=== PATIENT | female | born 1955 | race African-American/Black ===

== ENCOUNTER 2019-08-31 20:24 | Inpatient (IN) | payer MEDICARE, MEDICAID ==
[2019-08-31] MEDS ORDERED: Piperacillin/Tazobactam 3.375 GM VIAL ONE ×2 (21:39→21:44)
[2019-08-31] MEDS ORDERED: Heparin 10,000 UNITS/ 10 ML VIAL SLOW IVP SCH (21:45)
[2019-08-31 22:16] LABS: INR-International Normal Ratio 1.3; Prothrombin Time 16.4 SEC (12.0-14.7)
[2019-08-31 22:29] LABS: #Lymphocytes 1.1 thou/uL (1.20-3.40); #Monocytes 0.5 thou/uL (0.11-0.59); #Neutrophils 3.3 thou/uL (1.40-6.50); %Basophils 0.4 % (0.0-1.0); %Eosinophils 0.8 % (0.0-10.0); %Lymphocytes 22.7 % (21.0-51.0); %Monocytes 9.3 % (0.0-10.0); %Neutrophils 66.8 % (42.0-75.0); ALT (SGPT) 10 U/L (8-55); AST (SGOT) 19 U/L (5-34); Albumin 3.4 g/dL (3.4-4.8); Alkaline Phosphatase 83 U/L (40-110); Anion Gap 14 mmol/L (10-20); BUN (Urea Nitrogen) 30 mg/dL (9.8-20.1); Bilirubin, Total 0.3 mg/dL (0.2-1.2); Calc. Creatinine Clearance 0 mL/min (70-130); Carbon Dioxide 24 mmol/L (23-31); Chloride 97 mmol/L (98-107); Estimated GFR-MDRD 14; Globulin 3.5 g/dL (2.4-3.5); Glucose 101 mg/dL (80-115); Hemoglobin 10.7 g/dL (12.0-16.0); Mean Corpuscular HGB CONC 32.3 g/dL (32.0-36.0); Mean Corpuscular Hemoglobin 28.7 pg (27.0-31.0); Mean Corpuscular Volume 88.9 fL (78.0-98.0); Mean Platelet Volume 10.2 fL (7.4-10.4); Platelet Count 195 thou/uL (130-400); Potassium 4.3 mmol/L (3.5-5.1); Protein, Total 6.9 g/dL (6.0-8.3); RBC Distribution Width 14.6 % (11.5-14.5); Red Blood Cell (RBC) Count 3.74 mill/uL (4.20-5.40); Sodium 131 mmol/L (136-145); White Blood Cell (WBC) Count 4.9 thou/uL (4.8-10.8)
[2019-08-31 22:44] LABS: Thyroid Stimulating Hormone 2.5507 uIU/mL (0.35-4.94)
[2019-08-31 22:51] LABS: CKMB 1.9 ng/mL (0-6.6)
[2019-08-31] MEDS ORDERED: Acetaminophen 325 MG TAB PO PRN (23:56)
[2019-08-31] MEDS ORDERED: Lorazepam 2 MG/ML VIAL SLOW IVP PRN (23:59)
[2019-09-01] MEDS ORDERED: PHENobarbital 32.4 MG TAB PO SCH (00:15)
[2019-09-01] MEDS ORDERED: levETIRAcetam 500 MG TAB PO SCH (00:15)
[2019-09-01 01:52] LABS: Bacteria/HPF None Seen HPF (None Seen); Bilirubin Negative (Negative); Blood, Urine Trace (Negative); Clarity Clear (Clear); Glucose, Urine (Dipstick) Normal (Negative); Leukocyte Negative Leu/uL (Negative); Nitrite Negative (Negative); Protein, Urine (Dipstick) Negative (Neg-Trace); RBC/HPF None Seen HPF (0-3); Squamous Epithelial 0-3 HPF (0-3); Urobilinogen Normal mg/dL (Less than 2); WBC/HPF 0-3 HPF (0-3)
[2019-09-01 02:04] LABS: Troponin I 0.204 ng/mL (< 0.028)
[2019-09-01] MEDS: Sodium Chloride 0.9% 1,000 ML IV SCH ×2 (03:19→14:16)
[2019-09-01 05:58] LABS: #Eosinphils 0.1 thou/uL (0.0-0.7); #Lymphocytes 1.1 thou/uL (1.20-3.40); #Monocytes 0.3 thou/uL (0.11-0.59); %Basophils 0.2 % (0.0-1.0); %Eosinophils 2.9 % (0.0-10.0); %Lymphocytes 23.8 % (21.0-51.0); %Neutrophils 66.2 % (42.0-75.0); Hemoglobin 11.4 g/dL (12.0-16.0); Mean Corpuscular HGB CONC 32.7 g/dL (32.0-36.0); Mean Corpuscular Hemoglobin 29.1 pg (27.0-31.0); Mean Corpuscular Volume 88.9 fL (78.0-98.0); Mean Platelet Volume 10.3 fL (7.4-10.4); Platelet Count 188 thou/uL (130-400); RBC Distribution Width 14.7 % (11.5-14.5); White Blood Cell (WBC) Count 4.5 thou/uL (4.8-10.8)
[2019-09-01 06:12] LABS: Troponin I 0.148 ng/mL (< 0.028)
[2019-09-01 06:13] LABS: ALT (SGPT) 11 U/L (8-55); AST (SGOT) 21 U/L (5-34); Alkaline Phosphatase 69 U/L (40-110); Anion Gap 18 mmol/L (10-20); BUN (Urea Nitrogen) 30 mg/dL (9.8-20.1); Bilirubin, Total 0.4 mg/dL (0.2-1.2); Calc. Creatinine Clearance 14 mL/min (70-130); Calcium 7.8 mg/dL (7.8-10.44); Carbon Dioxide 19 mmol/L (23-31); Chloride 101 mmol/L (98-107); Estimated GFR-MDRD 14; Globulin 3.4 g/dL (2.4-3.5); Glucose 91 mg/dL (80-115); Potassium 4.3 mmol/L (3.5-5.1); Protein, Total 6.4 g/dL (6.0-8.3); Sodium 134 mmol/L (136-145)
[2019-09-01 06:17] LABS: PTT Greater than 250.0 SEC (22.9-36.1)
--- NOTE | 2019-09-01 07:19 | HP ---
CHIEF COMPLAINT: Shortness of breath. HISTORY OF PRESENT ILLNESS: The patient is a 63-year-old female, who came from [facility] with complaints of shortness of breath and was found to have a PE. The patient stated that she was recently in the hospital at [facility], was intubated and had a seizure. I am not sure if this is a new seizure or old seizure. However, the patient then was transferred to [facility] or [facility] for rehabilitation. The patient states that she has been feeling well however, today, she was just unable to do any kind of therapy, got very short of breath. At this time, she was seen by the physician at [facility]. D-dimer was done, which was significantly elevated and the patient at that time underwent a CTA, which indicated extensive pulmonary artery embolism, so she was transferred here for further evaluation. The patient also was noted to be significantly hypoxic in the 80s. PAST MEDICAL HISTORY: She has a history of seizure disorder. 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 She also has a history of chronic kidney disease stage 3. She has osteoarthritis. PAST SURGICAL HISTORY: She has had cataract surgery. She has a pacemaker in her left chest wall area. She has had a uterine prolapse repair, bladder suspension, and hysterectomy. MEDICATIONS: She is on; 1. Dilantin 400 mg daily. 2. Keppra 1000 mg b.i.d.. 3. Phenobarbital, per the MAR, 32.4 mg twice a day. 4. Magnesium 400 mg twice a day. 5. Tylenol p.r.n. ALLERGIES: THE PATIENT IS ALLERGIC TO PENICILLIN. SOCIAL HISTORY: She denies any smoking history. She lives alone. She does not drink and she is a full code and no other recreational drug use. FAMILY HISTORY: Father in his 60s, had diabetes and CAD, hypertension, Alzheimer's. Mother still alive at age of 88 and she has had a history of seizures. REVIEW OF SYSTEMS: All negative except for the ones mentioned above in the HPI. PHYSICAL EXAMINATION: VITAL SIGNS: Her temperature is 98.8, oxygen saturations 94% on 4 L, respirations 22, blood pressure 134/84, 97 pulse. GENERAL: She is awake, alert, and oriented x3. Does not appear in any much distress. HEENT: Normocephalic, atraumatic. No lymphadenopathy noted. Pupils equal and reactive to light. CV: S1 and S2 present. No murmurs, rubs, or gallops. LUNGS: Clear to auscultation. No rhonchi or wheezes noted. ABDOMEN: Soft and nontender. Bowel sounds are present x2. EXTREMITIES: She does have lower extremity 1+ pitting edema. No significant swelling noted from one greater than the other. NEUROLOGIC: Neurovascular dailey, no focal deficits noted. SKIN: No cuts, lesions, or bruises noted. LABORATORY RESULTS: WBCs of 4.9, hemoglobin of 10.7, hematocrit of 33.2, her platelets were 195. Chemistries; sodium of 131, potassium of 4.3, BUN of 30, creatinine of 3.91. Her troponin x1 was 0.416. TSH was 2.5. She did have a CTA, which indicated extensive pulmonary artery embolism, predominantly in the right upper pulmonary artery system, possible right-sided hydronephrosis. Nonemergent ultrasound indicated. In further evaluation of the pulmonary artery, there is a filling defect involving the distal main pulmonary artery with extension of filling defect into the proximal left main pulmonary artery and the right main pulmonary artery. Filling defect extends into the right upper lobe artery, middle lobe artery, and right lower lobe pulmonary artery. There is filling defect involving the segmental branches of the left upper lobe. ASSESSMENT AND PLAN: The patient is a very pleasant 63-year-old female, who presents to the hospital with shortness of breath and was found to have a pulmonary embolism. 1. Acute pulmonary embolism. The patient initially in the ER was started on heparin per pulmonary embolism protocol. We did call Pulmonology for possible tPA candidate given her extensive pulmonary embolism finding and her elevation of troponin. However, at this time, she was unable to receive any sort of tPA given the fact that she received Eliquis, which we were notified by the news broadcaster who was called by this [facility] seismograph helper. I did call the swing bed for further investigation about this and I was told by the nursing staff that the patient had received 10 mg of Eliquis at about 4:33 p.m. However, at this time, I will still continue the heparin and just continue to monitor. I will also order an echocardiogram and I will get lower extremity Dopplers. 2. Acute kidney injury and chronic kidney disease. Her creatinine now is 3.9, it was 1.52. I will get renal ultrasounds on this patient. Nephrology has been consulted. I will also start her on some gentle hydration given her recent contrast. 3. Seizure. I will continue her home dose seizure medication based on her medication reconciliation on her JAN. 4. Deep venous thrombosis prophylaxis. The patient is already on Lovenox. 5. The patient had significant T-wave inversions in the lateral leads. I do not have a previous EKG for comparison. I have asked for records from [facility] to compare them. The patient currently denies any chest pain. She denies any history of any stents. I will continue to monitor her. Job ID: [id number]
--- NOTE | 2019-09-01 07:54 | ULT ---
Renal ultrasound: 09/01/2019 COMPARISON: None HISTORY: Evaluate for hydronephrosis TECHNIQUE: Multiplanar grayscale sonographic imaging of the kidneys and urinary bladder obtained. FINDINGS: Prominent right-sided hydronephrosis is noted. The right kidney measures 11.8 cm in cranioc audal dimension. The urinary bladder is distended, with a prevoid volume of approximately 834 cc. Left kidney measures 10.2 cm in craniocaudal dimension and demonstrates minimal hydronephrosis. IMPRESSION: Bilateral hydronephrosis, right greater than left. Distended urinary bladder. The sonogra pher was unable to visualize ureteral jets. Recommend repeat renal ultrasound following voiding or placement of a Graham catheter. If hydronephrosis persists at that time, then a CT examination of the abdomen/pelvis would be recommended.
--- NOTE | 2019-09-01 08:41 | ULT ---
BILATERAL LOWER EXTREMITY VENOUS ULTRASOUND WITH DOPPLER: Date: 09/01/19 HISTORY: Newly diagnosed pulmonary artery emboli. COMPARISON: None. TECHNIQUE: Cortez scale, color flow, Doppler imaging, and spectral waveform analysis performed of the left and rig ht lower extremity deep venous system. FINDINGS: Right lower extremity: There is a partial thrombus involving the femoral vein and popliteal vein. Left lower extremity: There is a partial thrombus involving the common femoral vein and femoral vein. IMPRESSION: Partial deep vein thrombus involving the left and right lower extremity venous system. Results of study conveyed to the patient's nurse by the mult au matic operator upon performing exam, 09/01/19 at 0655 hours. CODE CR. POS: [facility]
[2019-09-01] MEDS: levETIRAcetam 500 MG TAB PO SCH ×2 (09:23→20:29)
[2019-09-01] MEDS: PHENobarbital 32.4 MG TAB PO SCH ×2 (09:23→20:29)
[2019-09-01] MEDS: Piperacillin/Tazobactam 3.375 GM in Sodium Chloride 0.9% 100 ML IVPB SCH ×3 (09:24→20:28)
--- NOTE | 2019-09-01 11:41 | CON ---
DATE OF CONSULTATION: REASON FOR CONSULTATION: Elevated creatinine. HISTORY OF PRESENT ILLNESS: This is a very pleasant 63-year-old female, who presented to the hospital with dyspnea. The patient's creatinine was 1.5 on August 29, which peaked to 3.9 yesterday and is 3.8 today, prior baseline has been 0.8. The patient had elevated troponin. The patient was treated for pulmonary embolism with tPA and had received IV contrast. PAST MEDICAL HISTORY: Significant for seizure disorder, bradycardia, pacemaker, cataract surgery, uterine prolapse, bladder suspension, and hysterectomy. MEDICATIONS: Home medications list reviewed. Hospital medications list reviewed. ALLERGIES: REVIEWED. REVIEW OF SYSTEMS: Fifteen-point review of system was performed and negative, except for positives noted above. GENERAL: HEAD: NECK: No swelling or lumps. NOSE: No epistaxis or discharge. EYES: No diplopia or pain. RESPIRATORY: CARDIOVASCULAR: GASTROINTESTINAL: /FIELD RECORDER: MUSCULOSKELETAL: No joint pain. NEUROPSYCHIATRIC SYSTEMS: No suicidal ideation. No ideation. SKIN: Denies any rash or ulcer. CONSTITUTIONAL: No fever or chills. PHYSICAL EXAMINATION: CONSTITUTIONAL: The patient is awake and alert. VITAL SIGNS: Afebrile, pulse 75, breathing 16, and blood pressure 127/70. GENERAL APPEARANCE AND MENTAL STATUS: Fair. HEAD/NECK: Normocephalic. Atraumatic. EYES: EOMI. No deformity. EARS: Clear. No ulcers. NOSE: Intact. No lesions. MOUTH: Clear. No discharge. THROAT: Clear. No exudate. LUNGS: Clear. No crackles. CARDIAC: S1, S2. No rub. ABDOMEN: Benign. Bowel sounds positive. GENITALIA/RECTUM: Graham absent. BACK/EXTREMITIES: Edema 0+. NEUROLOGICAL: Alert and motor intact. SKIN: LYMPHATICS: LABORATORY DATA: Reviewed. ASSESSMENT AND PLAN: Acute kidney disease on chronic kidney disease, multifactorial. The patient also has bilateral hydronephrosis . We will consult Urology. Job ID: [id number]
--- NOTE | 2019-09-01 13:24 | CT ---
CT ABDOMEN WITHOUT CONTRAST: INDICATION: Acute kidney insufficiency. COMPARISON: Comparison is made to CT abdomen and pelvis 11/04/2018. FINDINGS: Images through the lung bases show tiny bilateral effusions and mild bibasilar atelectasis, more prom inent in the left lung base posteriorly. Liver, spleen, and pancreas appear unremarkable given the lack of IV contrast. There is contrast see n within the gallbladder suggesting vicarious excretion. Gallbladder is not adequately evaluated by CT. Both kidneys show mild hydronephrosis, more prominent on the right. No evidence of calculus. Etiolo gy for hydronephrosis is not apparent on this abdominal-only exam. Lower ureters and bladder are not imaged. Visualized bowel loops unremarkable. Aorta normal caliber. No significant free fluid. There is subcutaneous haziness suggesting subcutaneous edema. IMPRESSION: 1. Bilateral hydronephrosis, more pronounced on the right. Etiology for hydronephrosis is not appar ent on this study. 2. Tiny bilateral pleural effusions and bibasilar atelectasis. A small pericardial effusion is also noted. 3. Subcutaneous edema within the adipose tissue. POS: [facility]
--- NOTE | 2019-09-01 14:52 | PDOC.HOSPP ---
- Subjective Encounter Date: 09/01/19 Encounter Time: 14:51 Subjective: doing okay, on heparin - Objective Vital Signs & Weight: Vital Signs (12 hours) Temp Pulse Resp BP Pulse Ox 09/01/19 12:00 98.3 F 98 18 126/88 90 L 09/01/19 07:31 97.7 F 93 29 H 127/80 95 09/01/19 04:00 97.2 F L 90 20 133/84 93 L Weight Admit Weight 133 lb 3 oz Weight 133 lb 3 oz I&O: 08/31/19 09/01/19 09/02/19 06:59 06:59 06:59 Intake Total 495 Balance 495 Result Diagrams: 09/01/19 05:00 09/01/19 05:00 Hospitalist ROS - Medication Medications: Active Medications Generic Name Dose Route Start Last Admin Trade Name Freq PRN Reason Stop Dose Admin Sodium Chloride 1,000 mls @ 100 mls/hr 09/01/19 00:15 09/01/19 14:16 Normal Saline 0.9% IV 1,000 mls .Q10H CHAR Administration Piperacillin Sod/Tazobactam 100 mls @ 200 mls/hr 09/01/19 08:00 09/01/19 14: 22 Sod 3.375 gm/ Sodium Chloride IVPB 100 mls 0200,0800,1400,2000 CHAR Administration Levetiracetam 1,000 mg 09/01/19 09:00 09/01/19 09:23 Keppra PO 1,000 mg BID CHAR Administration Phenobarbital 32.4 mg 09/01/19 09:00 09/01/19 09:23 Phenobarbital PO 32.4 mg BID CHAR Administration Phenytoin Sodium 400 mg 09/01/19 09:00 09/01/19 09:22 Dilantin Er PO 400 mg DAILY CHAR Administration - Exam General Appearance: NAD, awake alert, ill appearing Eye: PERRL, anicteric sclera, scleral icterus ENT: normocephalic atraumatic, no oropharyngeal lesions, moist mucosa, dry oral mucosa Neck: supple, symmetric, no JVD, no thyromegaly, no lymphadenopathy, no carotid bruit, JVD Heart: RRR, no murmur, no gallops, no rubs, normal peripheral pulses, irregular , diminshed peripheral pulses, murmur present, II/IV, III/IV Respiratory: CTAB, no wheezes, no rales, no ronchi, normal chest expansion, no tachypnea, normal percussion, rales, rhonchi, tachypneic, wheezes Gastrointestinal: soft, non-tender, non-distended, normal bowel sounds, no palpable masses, no hepatomegaly, no splenomegaly, no bruit, no guarding, no rigidity, tender to palpation, distended, diminished bowl sounds, voluntary guarding Extremities: no cyanosis, no clubbing, no edema, 1+ LE edema, 2+ LE edema, clubbing Skin: normal turgor, no lesions, no rashes, tenting Hosp A/P (1) Urinary retention Code(s): R33.9 - RETENTION OF URINE, UNSPECIFIED Status: Acute (2) PE (pulmonary thromboembolism) Code(s): I26.99 - OTHER PULMONARY EMBOLISM WITHOUT ACUTE COR PULMONALE Status : Acute - Plan continue anti coagulation. Fole catheter. pulmonary consult apreciated.
--- NOTE | 2019-09-01 22:02 | CON ---
DATE OF CONSULTATION: 09/01/2019 HISTORY OF PRESENT ILLNESS: Jr Win is a 63-year-old female. She has been in the [facility] bed for rehabilitation. She is currently unable to walk. She had a hospitalization for seizures recently and was in the ICU mechanically ventilated. She was transferred back to [place] to get her physical strengthening. She developed shortness of breath and was anticoagulated with Eliquis by Dr. Lawton after a CT pulmonary angiogram yesterday showed evidence of thromboembolic disease. She says she is feeling better. PAST MEDICAL HISTORY: Remarkable for 1. Seizure disorder, on three drugs after her last admission with respiratory failure. 2. Degenerative arthritis. 3. History of encephalopathy, after her seizures did improve. 4. History of chronic kidney disease. 5. History of multiple visits to the emergency department this year and actually , frequent visits to [facility] going all the way back to 2012. 6. History of cataract surgery. 7. History of surgery for uterine prolapse and a bladder suspension. 8. Status post hysterectomy. MEDICATIONS: Prior to admission, she is on 1. Dilantin. 2. Keppra. 3. Phenobarbital. ALLERGIES: SHE REPORTS PENICILLIN ALLERGY. SOCIAL HISTORY: She is nonsmoker and nondrinker. FAMILY HISTORY: Positive for diabetes, vascular disease, and hypertension. REVIEW OF SYSTEMS: Ten-point review of systems completed, otherwise negative. PHYSICAL EXAMINATION: GENERAL: She is pleasant. She has a latency of response with question, but will eventually answer questions appropriately. VITAL SIGNS: She is afebrile. Heart rate is 78, respiratory rate is 18, oximetry is 90 to 95 on 4 L, blood pressure 130/82. HEAD AND NECK: Unremarkable. LUNGS: Clear. HEART: Regular rhythm. S1 and S2 are normal. She has grade 1/6 to 2/6 systolic murmur. ABDOMEN: Soft and nontender. EXTREMITIES: Without clubbing, cyanosis, or edema. LABORATORY DATA: White count 4.5, hemoglobin 11.4, platelets 188. Sodium 134, potassium 4.3, chloride 101, bicarb 19, BUN 30, creatinine 3.89. Creatinine was just 1.52 three days ago. IMPRESSION: 1. Subacute submassive thromboembolic disease. She is currently heparinized. 2. Acute renal insufficiency, most likely secondary to intravascular volume depletion. 3. Elevated troponin of 0.4, most likely mediated by the stress with a thromboembolic event. 4. History of a seizure disorder. She will continue with heparin drip and then eventually will be converted to oral anticoagulants. TIME SPENT: This is a 70-minute consult, with greater than 50% of the time was spent on the unit, coordinating care. Job ID: [id number] MTDD
--- NOTE | 2019-09-01 23:55 | CON ---
DATE OF CONSULTATION: 09/01/2019 CONSULTING: Family Medicine. CONSULTED: Dr. Schafer. REASON FOR CONSULTATION: Hydronephrosis. HISTORY OF PRESENT ILLNESS: Mrs. Win is a 63-year-old black female who has been readmitted to the hospital for a pulmonary embolism. She previously had a seizure and after discharge was sent to [facility] or swing bed where she began feeling short of breath along with getting chest pain. She underwent a CTA with contrast which demonstrated a pulmonary artery embolism and was transferred back to [place]. She has already received tPA and had an EKG and labs demonstrating an elevated troponin. She had a baseline creatinine around 1.5 and it was noted that she had an elevation in her creatinine up to 3.8. Dr. Pollock was consulted for a contrast-induced nephropathy and as part of the workup, he ordered a renal ultrasound, which demonstrated hydronephrosis and a very distended bladder. The patient underwent a subsequent CT scan of the kidneys only and had a Graham catheter placed. Unfortunately, the CT did not cover the pelvis and the distal ureters which still remain unevaluated. On my discussion with the patient, she states that she has been having urinary frequency for several weeks. She is a relatively poor historian and cannot remember a lot of her history. She states that she does not have any difficulty with urination, but has significant nocturia about 5-6 times a night and urinary frequency about every 2 hours to every hour. She denies having significant problems with incontinence. Denies any hematuria, recurrent UTIs, or history of urolithiasis. She apparently had significant pelvic organ prolapse and has undergone a hysterectomy with bladder suspension at [facility], although it is unclear if she had mesh placed at that time. ALLERGIES: PENICILLIN. HOME MEDICATIONS: 1. Dilantin. 2. Keppra. 3. Phenobarbital. 4. Magnesium. 5. Tylenol. PAST MEDICAL HISTORY: 1. Seizure disorder. 2. Bradycardia. 3. Chronic kidney disease. 4. Osteoarthritis. PAST SURGICAL HISTORY: 1. Cataract surgery. 2. Pacemaker placement. 3. Uterine prolapse repair. 4. Hysterectomy. 5. Bladder suspension. SOCIAL HISTORY: The patient states she does not smoke. She lives alone, is currently at [facility]. She denies drinking alcohol or illicit drug use. FAMILY HISTORY: Significant for Alzheimer disease, diabetes, and coronary artery disease. REVIEW OF SYSTEMS: A 12-point review of system was reviewed and negative other than the shortness of breath that the patient mentioned as well as any other comments noted in the HPI. PHYSICAL EXAMINATION: VITAL SIGNS: Temperature 99.4, pulse 99, respirations 18, blood pressure 146/86, saturations 98% on room air. GENERAL: No apparent distress. Communicative and alert, answers questions mostly appropriately, although she does seem to have poor recollection. She appears chronically ill and somewhat debilitated. HEENT: Normocephalic, atraumatic. Pupils are symmetric and round. Trachea is midline. Moist mucous membranes. CARDIOVASCULAR: Regular rate and rhythm. Normal S1 and S2. Symmetric pulses. CHEST: Slightly increased work of breathing. Symmetric expansion of the lungs, clear anteriorly. ABDOMEN: Soft, nontender, and nondistended. Positive bowel sounds. No organomegaly. No hernia. Well-healed incision. EXTREMITIES: No clubbing or cyanosis. 2+ edema bilaterally. MUSCULOSKELETAL: No obvious joint deformities or joint erythema noted. Full range of motion. NEUROLOGIC: Cranial nerves 2 through 12 are grossly intact. No focal or sensory motor deficits identified. SKIN: Warm and dry. Good turgor. No rashes or lesions. PSYCHIATRIC: Alert and oriented x2. Appropriate mood and affect. LABORATORY EVALUATION: The full set of labs are in the [employer] system, which I have reviewed. The patient's creatinine is currently 3.89 with white blood cell count of 4.5. Troponins are 0.416 and trending down. Urinalysis demonstrates trace blood, but otherwise is completely normal. Renal ultrasound demonstrates a distended bladder with bilateral hydronephrosis. Subsequent abdominal CT, which did not contain distal imaging demonstrates bilateral hydronephrosis, more pronounced on the right. The etiology of the hydronephrosis was not apparent on this abdominal exam only. There are tiny bilateral pleural effusions. ASSESSMENT AND PLAN: A 63-year-old black female with pulmonary embolism and [id number] myocardial infarction with what appears to be urinary retention with resultant urinary frequency that the patient has been experiencing for the past several months. This likely has resulted in chronic hydronephrosis. I do think that the majority of her elevated creatinine is probably due to contrast-induced nephropathy, which should improve with conservative measures. However, she does apparently have hydronephrosis, which is unclear based on current imaging. She will need a formal CT stone protocol to evaluate the entire urinary tract from kidneys, entire ureters and the bladder. If there is no abnormality noted, we will re-evaluate to see with the catheter in if the hydronephrosis is still present. If it is present, she may require ureteral stents which we can always perform non-emergently, but would potentially improve her urinary function. Long-term management of ureteral obstruction will need to be elucidated to see if she has ureteral strictures or other potential causes of why her ureters are not draining, although I suspect that given the bilateral hydronephrosis and chronic urinary retention that she looked most likely has neurogenic bladder for unknown reasons, which is not apparent at this time. Although bladder pelvic obstruction is possible, it would be very unlikely in a woman. We can always perform urodynamics at a later date, but I will watch her creatinine closely as well as continue catheterization, and await for the CT scan results to make further recommendations. Job ID: [id number]
[2019-09-02] MEDS: Sodium Chloride 0.9% 1,000 ML IV SCH ×4 (02:46→18:12)
[2019-09-02] MEDS: Piperacillin/Tazobactam 3.375 GM in Sodium Chloride 0.9% 100 ML IVPB SCH ×4 (02:46→20:31)
[2019-09-02] MEDS: Heparin 25,000 units/D5W 500 ML IV SCH (04:09)
--- NOTE | 2019-09-02 08:13 | PRG ---
DATE OF SERVICE: 09/02/2019 SUBJECTIVE: A 63-year-old female being seen for acute kidney injury. The patient denied nausea, vomiting or chest pain. OBJECTIVE: See above. The patient is awake, alert. VITAL SIGNS: Pulse 86, breathing 16, blood pressure 126/74. GENERAL APPEARANCE AND MENTAL STATUS: Fair. HEAD/NECK: Normocephalic. Atraumatic. EYES: EOMI. No deformity. EARS: Clear. No ulcers. NOSE: Intact. No lesions. MOUTH: Clear. No discharge. THROAT: Clear. No exudate. LUNGS: Clear. No crackles. CARDIAC: S1, S2. No rub. ABDOMEN: Benign. Bowel sounds positive. GENITALIA/RECTUM: Graham absent. BACK/EXTREMITIES: Edema 0+. NEUROLOGICAL: Alert and motor intact. SKIN: LYMPHATICS: LABORATORY DATA: Creatinine 3.8. Today's creatinine is pending. ASSESSMENT AND PLAN: 1. Chronic kidney disease stage 5 with acute kidney injury, multifactorial. We will recheck labs. 2. Hypertensive anemia, stable. Medication based on GFR appropriate. 3. Hydronephrosis. Urology consult noted. Job ID: [id number]
[2019-09-02] MEDS: levETIRAcetam 500 MG TAB PO SCH ×2 (08:21→20:31)
[2019-09-02] MEDS: PHENobarbital 32.4 MG TAB PO SCH ×2 (08:24→20:31)
--- NOTE | 2019-09-02 09:34 | CT ---
CT ABDOMEN AND PELVIS WITHOUT IV CONTRAST: INDICATIONS: History of acute renal injury. COMPARISON: CT abdomen without contrast dated 09/01/2019. Renal ultrasound dated 09/01/2019. Prior CT abdomen and pelvis with IV contrast dated 09/04/2018. FINDINGS: There is a small bilateral pleural effusion and bibasilar atelectasis. There is moderate cardiomegaly . There is partial visualization of a pacemaker lead involving the right ventricle. Unopacified pancreas and adrenal glands appear within normal limits. There is moderate right and mild left hydronephrosis. There is some contrast opacification within the renal collecting system, likely related to prior IV contrast administration from the patient's CT PE examination dated 08/31/2019. No definite obstructing stone is noted. There is a Graham catheter with in a decompressed bladder. The bladder wall appears mildly thickened. There is a moderate amount of r etained stool within the rectum. There is a moderate amount of retained stool within the colon. There is a normal retrocecal appendix. The small bowel is of normal caliber. There is diffuse anasarca. Th ere is very mild ascites within the lower pelvic. There is diffuse osteopenia. There is scattered degenerative and osteoarthritic change. No definite a cute osseous abnormality is demonstrated. IMPRESSION: 1. Moderate right and mild left hydronephrosis. The bladder is decompressed with a Graham catheter. Th e degree of hydronephrosis appears less prominent than on the prior CT of the abdomen dated 9. Findings may reflect sequela of hydronephrosis related to chronic bladder outlet obstruction. Cont inued followup of the renal collecting system distention is recommended. Renal ultrasound may be help ful for followup. 2. Bilateral pleural effusions, anasarca and mild ascites. 3. Moderate amount of retained stool within the rectum and colon. POS: OFF
--- NOTE | 2019-09-02 12:53 | PDOC.HOSPP ---
- Subjective Encounter Date: 09/02/19 Encounter Time: 12:51 Subjective: doing well - Objective Vital Signs & Weight: Vital Signs (12 hours) Temp Pulse Pulse Resp BP BP Pulse Ox 09/02/19 11:31 98.6 F 89 20 134/82 95 09/02/19 10:22 98 130/71 09/02/19 08:09 97.9 F 84 26 H 123/69 100 09/02/19 04:00 98.4 F 86 16 126/74 98 Pulse Ox 09/02/19 11:31 09/02/19 10:22 95 09/02/19 08:09 09/02/19 04:00 Weight Admit Weight 133 lb 3 oz Weight 137 lb 1.6 oz I&O: 09/01/19 09/02/19 09/03/19 06:59 06:59 06:59 Intake Total 495 2100 Output Total 3000 Balance 495 -900 Result Diagrams: 09/01/19 05:00 09/01/19 05:00 Hospitalist ROS - Medication Medications: Active Medications Generic Name Dose Route Start Last Admin Trade Name Zully PRN Reason Stop Dose Admin Heparin Sodium/Dextrose 500 mls @ 0 mls/hr 08/31/19 21:45 09/02/19 04:09 Heparin 25,000 Units/D5w 500 Ml IV 500 mls INF CHAR Administration Protocol As Directed Sodium Chloride 1,000 mls @ 100 mls/hr 09/01/19 00:15 09/02/19 02:46 Normal Saline 0.9% IV 1,000 mls .Q10H CHAR Administration Piperacillin Sod/Tazobactam 100 mls @ 200 mls/hr 09/01/19 08:00 09/02/19 08: 20 Sod 3.375 gm/ Sodium Chloride IVPB 100 mls 0200,0800,1400,2000 CHAR Administration Levetiracetam 1,000 mg 09/01/19 09:00 09/02/19 08:21 Keppra PO 1,000 mg BID CHAR Administration Phenobarbital 32.4 mg 09/01/19 09:00 09/02/19 08:24 Phenobarbital PO 32.4 mg BID CHAR Administration Phenytoin Sodium 400 mg 09/01/19 09:00 09/02/19 08:23 Dilantin Er PO 400 mg DAILY CHAR Administration - Exam General Appearance: NAD, awake alert, ill appearing ENT: normocephalic atraumatic, no oropharyngeal lesions, moist mucosa, dry oral mucosa Neck: supple, symmetric, no JVD, no thyromegaly, no lymphadenopathy, no carotid bruit, JVD Heart: RRR, no murmur, no gallops, no rubs, normal peripheral pulses, irregular , diminshed peripheral pulses, murmur present, II/IV, III/IV Respiratory: CTAB, no wheezes, no rales, no ronchi, normal chest expansion, no tachypnea, normal percussion, rales, rhonchi, tachypneic, wheezes Gastrointestinal: soft, non-tender, non-distended, normal bowel sounds, no palpable masses, no hepatomegaly, no splenomegaly, no bruit, no guarding, no rigidity, tender to palpation, distended, diminished bowl sounds, voluntary guarding Extremities: no cyanosis, no clubbing, no edema, 1+ LE edema, 2+ LE edema, clubbing Skin: normal turgor, no lesions, no rashes, tenting Neurological: cranial nerve grossly intact, normal sensation to touch, no weakness, no focal deficits, no new deficit, facial droop, hemiplegia, speech deficit, vision deficit Hosp A/P (1) Urinary retention Code(s): R33.9 - RETENTION OF URINE, UNSPECIFIED Status: Acute (2) PE (pulmonary thromboembolism) Code(s): I26.99 - OTHER PULMONARY EMBOLISM WITHOUT ACUTE COR PULMONALE Status : Acute - Plan continue anti coagulation. Fole catheter. pulmonary consult apreciated.Ct results noted. Apreciate urology input. Consider oral anticoagulant, coumadin may considered if urology has no plans for surgical procedures planned.
[2019-09-02 14:47] LABS: Anion Gap 16 mmol/L (10-20); BUN (Urea Nitrogen) 10 mg/dL (9.8-20.1); Calc. Creatinine Clearance 62 mL/min (70-130); Calcium 7.9 mg/dL (7.8-10.44); Carbon Dioxide 18 mmol/L (23-31); Chloride 110 mmol/L (98-107); Estimated GFR-MDRD 77; Glucose 124 mg/dL (80-115); Potassium 3.3 mmol/L (3.5-5.1); Sodium 141 mmol/L (136-145)
--- NOTE | 2019-09-02 15:03 | PRG ---
DATE OF SERVICE: 09/02/2019 SUBJECTIVE: Ms. Win has no new complaints. She is sitting on the side of the bed. OBJECTIVE: VITAL SIGNS: She is afebrile. Heart rate is in the 80s, respiratory rate is 20, oximetry is 95% on room air, blood pressure 134/82. LUNGS: Clear. HEART: Regular rhythm. ABDOMEN: Soft. IMPRESSION AND PLAN: Thromboembolic disease, which is clinically improving. She has gone from being on high-flow oxygen and room air now suggesting that she is having spontaneous lysis of all of her clots. She can be switched to oral anticoagulants at any time. Job ID: [id number]
[2019-09-02] MEDS ORDERED: Loratadine 10 MG TAB PO SCH (17:00)
--- NOTE | 2019-09-02 18:04 | PRG ---
DATE OF SERVICE: 09/02/2019 SUBJECTIVE: The patient states she is feeling fine. She is still having coughing and some pleuritic chest pain. She underwent a repeat CT scan, which demonstrates persistent hydronephrosis bilaterally, worse on the right. OBJECTIVE: VITAL SIGNS: Temperature 97.8, pulse 93, respirations 15, blood pressure 135/81, saturation 92% on room air. GENERAL: No apparent distress. Communicative. Appears somewhat somnolent. Answering questions appropriately. CARDIOVASCULAR: Regular rate and rhythm. ABDOMEN: Soft, nontender, and nondistended. Positive bowel sounds. : Graham catheter in place, draining clear yellow urine. LABORATORY EVALUATION: Full set of labs are in the [facility] system, which I have reviewed. Of note, patient does not have any new labs as of today other than her creatinine, which has now come back down to completely normal at 0.89. ASSESSMENT AND PLAN: A 63-year-old black female with recurrent pulmonary embolism and [id number] myocardial infarction with acute kidney injury secondary to contrast load with chronic kidney disease in part due to chronic urinary retention. This has been managed with a Graham catheter. The current hydronephrosis noted on the CT scan, is likely secondary to chronic dilation and rather than persistent obstruction. She did have a little bit of residual contrast dye within the kidneys. If she actually had ureteral obstruction, the contrast would be collecting an accumulating within the renal pelvis and ureter which has not seen, indicating that she does not have any persistent obstruction. I do not think that she needs anything further at this time other than to keep her indwelling catheter until her pulmonary embolism issues and [id number] myocardial infarction issues have resolved. She should see me as an outpatient where we can consider urodynamics or discuss long-term management plans regarding her persistent urinary retention either with indwelling catheter, SP tube, CIC, or if there is a reversible cause, we can address that. For now, I would recommend continuation of the indwelling catheter upon discharge and follow up with me as an outpatient. Given that her renal functions returned back to normal, there is nothing further needs to be done with me. I will go ahead and sign off. Please re-consult if there are any further questions or problems. Job ID: [id number]
[2019-09-03] MEDS: Piperacillin/Tazobactam 3.375 GM in Sodium Chloride 0.9% 100 ML IVPB SCH ×2 (02:38→09:23)
[2019-09-03] MEDS: Heparin 25,000 units/D5W 500 ML IV SCH (08:19)
[2019-09-03] MEDS: Loratadine 10 MG TAB PO SCH (09:19)
[2019-09-03] MEDS: levETIRAcetam 500 MG TAB PO SCH ×2 (09:19→20:48)
[2019-09-03] MEDS: PHENobarbital 32.4 MG TAB PO SCH ×2 (09:20→20:49)
--- NOTE | 2019-09-03 09:38 | PRG ---
DATE OF SERVICE: 09/03/2019 SUBJECTIVE: Ms. Win remains stable. OBJECTIVE: VITAL SIGNS: Her temperature max 100.2, heart rate is in 80s, respiratory rate 16, oximetry is 94% on room air and blood pressure 109/69. LUNGS: Clear. HEART: Regular rhythm. ABDOMEN: Soft. IMPRESSION AND PLAN: Thromboembolic disease. She will be transferred to [facility] [place]. Job ID: [id number]
[2019-09-03 10:42] LABS: Anion Gap 16 mmol/L (10-20); BUN (Urea Nitrogen) 6 mg/dL (9.8-20.1); Calc. Creatinine Clearance 58 mL/min (70-130); Calcium 7.8 mg/dL (7.8-10.44); Carbon Dioxide 20 mmol/L (23-31); Chloride 107 mmol/L (98-107); Estimated GFR-MDRD 75; Glucose 131 mg/dL (80-115); Sodium 140 mmol/L (136-145)
[2019-09-03 10:45] LABS: Potassium 2.9 mmol/L (3.5-5.1)
--- NOTE | 2019-09-03 11:27 | PRG ---
DATE OF SERVICE: 09/03/2019 SUBJECTIVE: A 63-year-old female being seen for acute kidney injury. The patient denied any nausea, vomiting, or chest pain. OBJECTIVE: See above. The patient is awake and alert. VITAL SIGNS: Afebrile, pulse 75, breathing 16, and blood pressure 109/69. GENERAL APPEARANCE AND MENTAL STATUS: Fair. HEAD/NECK: Normocephalic. Atraumatic. EYES: EOMI. No deformity. EARS: Clear. No ulcers. NOSE: Intact. No lesions. MOUTH: Clear. No discharge. THROAT: Clear. No exudate. LUNGS: Clear. No crackles. CARDIAC: S1, S2. No rub. ABDOMEN: Benign. Bowel sounds positive. GENITALIA/RECTUM: Graham absent. BACK/EXTREMITIES: Edema 0+. NEUROLOGICAL: Alert and motor intact. SKIN: LYMPHATICS: LABORATORY DATA: Labs show hemoglobin 11.4. Creatinine 0.1. ASSESSMENT AND PLAN: 1. Acute kidney injury, resolved. 2. Hypokalemia. Recommend aggressive potassium replacement. 3. Anemia, stable. I will sign off on this patient. Please reconsult as needed. Job ID: [id number]
[2019-09-03] MEDS ORDERED: Potassium Chloride 20 MEQ TAB PO SCH (12:00)
[2019-09-03 12:30] VITALS: BMI 20.7
[2019-09-03] MEDS: Sodium Chloride 0.9% 1,000 ML IV SCH (12:59)
--- NOTE | 2019-09-03 13:15 | PDOC.HOSPP ---
- Subjective Encounter Date: 09/03/19 Encounter Time: 13:13 Subjective: melanie payton - Objective Vital Signs & Weight: Vital Signs (12 hours) Temp Pulse Resp BP Pulse Ox 09/03/19 12:23 98.1 F 92 18 113/71 92 L 09/03/19 08:09 98.9 F 89 16 109/69 94 L 09/03/19 03:45 100.2 F H 93 24 H 109/59 L 92 L Weight Admit Weight 133 lb 3 oz Weight 132 lb 8 oz I&O: 09/02/19 09/03/19 09/04/19 06:59 06:59 06:59 Intake Total 2100 4394.4 Output Total 3000 6650 Balance -900 -2171.6 Result Diagrams: 09/01/19 05:00 09/03/19 09:59 Hospitalist ROS - Medication Medications: Active Medications Generic Name Dose Route Start Last Admin Trade Name Freq PRN Reason Stop Dose Admin Sodium Chloride 1,000 mls @ 50 mls/hr 09/02/19 18:00 09/03/19 12:59 Normal Saline 0.9% IV 1,000 mls .Q20H CHAR Administration Levetiracetam 1,000 mg 09/01/19 09:00 09/03/19 09:19 Keppra PO 1,000 mg BID CHAR Administration Loratadine 10 mg 09/03/19 09:00 09/03/19 09:19 Claritin PO 10 mg QAM CHAR Administration Phenobarbital 32.4 mg 09/01/19 09:00 09/03/19 09:20 Phenobarbital PO 32.4 mg BID CHAR Administration Phenytoin Sodium 400 mg 09/01/19 09:00 09/03/19 09:19 Dilantin Er PO 400 mg DAILY CHAR Administration Potassium Chloride 40 meq 09/03/19 12:00 09/03/19 12:58 K-Dur PO 09/03/19 14:00 40 meq NOW CHAR Administration - Exam General Appearance: NAD, awake alert, ill appearing Eye: PERRL, anicteric sclera, scleral icterus Neck: supple, symmetric, no JVD, no thyromegaly, no lymphadenopathy, no carotid bruit, JVD Heart: RRR, no murmur, no gallops, no rubs, normal peripheral pulses, irregular , diminshed peripheral pulses, murmur present, II/IV, III/IV Respiratory: CTAB, no wheezes, no rales, no ronchi, normal chest expansion, no tachypnea, normal percussion, rales, rhonchi, tachypneic, wheezes Extremities: no cyanosis, no clubbing, no edema, 1+ LE edema, 2+ LE edema, clubbing Skin: normal turgor, no lesions, no rashes, tenting Neurological: cranial nerve grossly intact, normal sensation to touch, no weakness, no focal deficits, no new deficit, facial droop, hemiplegia, speech deficit, vision deficit Hosp A/P (1) Urinary retention Code(s): R33.9 - RETENTION OF URINE, UNSPECIFIED Status: Acute (2) PE (pulmonary thromboembolism) Code(s): I26.99 - OTHER PULMONARY EMBOLISM WITHOUT ACUTE COR PULMONALE Status : Acute (3) Hypokalemia Code(s): E87.6 - HYPOKALEMIA Status: Acute - Plan continue anti coagulation. Fole catheter. pulmonary consult apreciated.Ct results noted. Apreciate urology input. Consider oral anticoagulant, coumadin may considered if urology has no plans for surgical procedures planned.Add kcl 40 meq. Eloquis was started, advance the and ambulate the patient
[2019-09-03 13:50] LABS: Hemoglobin 9.8 g/dL (12.0-16.0); Platelet Count 237 thou/uL (130-400)
[2019-09-03 14:27] LABS: Calc. Creatinine Clearance 70 mL/min (70-130); Estimated GFR-MDRD Greater than 90
[2019-09-03] MEDS: Apixaban 5 MG TAB PO SCH (20:49)
[2019-09-04] MEDS: Loratadine 10 MG TAB PO SCH (08:48)
[2019-09-04] MEDS: Apixaban 5 MG TAB PO SCH (08:49)
[2019-09-04] MEDS: levETIRAcetam 500 MG TAB PO SCH (08:49)
[2019-09-04] MEDS: PHENobarbital 32.4 MG TAB PO SCH (08:49)
[2019-09-04] MEDS: Sodium Chloride 0.9% 1,000 ML IV SCH (08:59)
[2019-09-04 10:11] LABS: Anion Gap 17 mmol/L (10-20); BUN (Urea Nitrogen) 5 mg/dL (9.8-20.1); Calc. Creatinine Clearance 71 mL/min (70-130); Calcium 7.8 mg/dL (7.8-10.44); Carbon Dioxide 17 mmol/L (23-31); Chloride 109 mmol/L (98-107); Estimated GFR-MDRD Greater than 90; Glucose 119 mg/dL (80-115); Potassium 3.7 mmol/L (3.5-5.1); Sodium 139 mmol/L (136-145)
[2019-09-04 15:49] VITALS: BP 106/58; TEMP 98
--- NOTE | 2019-09-04 20:07 | DIS ---
DATE OF ADMISSION: 08/31/2019 DATE OF DISCHARGE: 09/04/2019 ADMITTING DIAGNOSIS: Pulmonary embolism despite being on Eliquis. FINAL DIAGNOSES: 1. Pulmonary embolism, improving. 2. Deconditioning. CONSULT ON THE CASE: Pulmonology, Dr. Silva. HOSPITAL COURSE: The patient was admitted, IV heparin was started and continued for 3 days. Physical therapy was initiated. As the patient requiring therapy, it has been concluded to transfer the patient back to long term facility. Pulmonology recommended switching back to the Eliquis. CONDITION OF THE PATIENT: At the time of discharge, the patient is ambulating and tolerating diet well. DISCHARGE MEDICATIONS: Has been reconciled and started Eliquis back on 10 mg p.o. b.i.d. DISCHARGE INSTRUCTIONS: Discharge the patient to long term facility under the care of Dr. Lawton and I spoke to Dr. Lawton on phone. Diet, cardiac prudent. Activity as tolerated. Coumadin teaching has been performed. Discharge medications as per reconciliation sheet. Further instructions as per primary care physician at the long term facility. The risks of anticoagulation have been discussed with the patient at length. Job ID: [id number]
== END 2019-09-04 16:51 | DRG 175 ==
LOC: ERS 20:24 → 2NO 23:00
PROVIDERS: ADMIT Internal Medicine; ATTEND Internal Medicine
DX: I26.99 Other pulmonary embolism without acute cor pulmonale (principal); I21.4 Non-ST elevation (NSTEMI) myocardial infarction; N17.9 Acute kidney failure, unspecified; E87.1 Hypo-osmolality and hyponatremia; N13.30 Unspecified hydronephrosis; N18.5 Chronic kidney disease, stage 5; G40.409 Other generalized epilepsy and epileptic syndromes, not intractable, without status epilepticus; Z96.1 Presence of intraocular lens; I12.9 Hypertensive chronic kidney disease with stage 1 through stage 4 chronic kidney disease, or unspecified chronic kidney disease; R33.9 Retention of urine, unspecified; D63.1 Anemia in chronic kidney disease; E87.6 Hypokalemia; M19.90 Unspecified osteoarthritis, unspecified site; Z98.41 Cataract extraction status, right eye; Z90.710 Acquired absence of both cervix and uterus; Z98.42 Cataract extraction status, left eye; Z95.0 Presence of cardiac pacemaker; Z88.0 Allergy status to penicillin
CPT/HCPCS: 36415; 51701; 74150; 74176; 76770; 80048; 80053; 81003; 81015; 82553; 83605; 84132; 84145; 84443; 84484; 85014; 85018; 85025; 85049; 85610; 85730; 87040; 87086; 93005; 93306; 93970; 94760; 96361; 96365; 96366; 96367; A4353; J1644; J1956; J2543; J3370; J3490

== ENCOUNTER 2020-02-17 19:39 | Observation (INO) | payer MEDICARE, MEDICAID ==
[~2020-02-17 19:39] MED LIST: Dexamethasone 20 MG/5 ML VIAL ONE; Ketorolac Tromethamine 30 MG/ML VIAL ONE; Lidocaine 1% PF 5 ML VIAL ONE; Metoclopramide HCl 10 MG/2 ML VIAL ONE; Ondansetron PF 4 MG/2 ML Vial ONE; PHENYLEPHRINE-NS 100 MCG/ML 10 ML SYRINGE ONE; PROPOFOL 200 MG/20 ML VIAL ONE; Rocuronium Bromide 10 MG/ML (10ML VIAL) ONE
[2020-02-17] MEDS ORDERED: Acetaminophen 325 MG TAB PO PRN (21:17)
--- NOTE | 2020-02-17 21:54 | PDOC.HHP ---
Hospitalist HPI - History of Present Illness Jaw pain and swelling x 3 days. History of Present Illness: PCP: Dr. Lowery ([facility]) Transfer from [facility]. The patient is a 64/F with PMH pf DVT/PE (eliquis), seizures, bradycardia with PM that presents to ER for above complaint. The patient reports developing right lower jaw and mouth pain 3 days ago. Over the next couple days she developed swelling to the right side of her face. This morning she had fever. She denies any dysphagia, difficulty breathing or inability to control secretions. In November of this year, she was on clindamycin for similar problem , but she broke out in hives and stopped the antibiotic before finishing the dose as prescribed. She did not follow up with a dentist as recommended. I spoke with her daughter on the telephone, she confirmed the above information , explained that her mother had a seizure when she was last admitted into the hospital, she requested seizure precautions. She also reports that her mother had all of her morning medications, including eliquis. She confirmed all of her home medications via telephone. ED Course: Febrile 101.4F, BP 119/62, HR 89, RR 16, Sp02 95% RA WBC 7.[address] facial showed right tanner-mandibular cellulitis with 1.1 cm rim enchancing fluid collection adjacent to right mandibular ramus, consistent for abscess. Na134 K 4.4 BUN 11 Creatinine 0.74 Glucose 102 GFR 90 Hgb 13.3 Hct 43 Given Meropenem IVPB 1L NS Hospitalist ROS - Review of Systems Constitutional: reports: fever, chills, malaise Eyes: denies: pain, vision change, conjunctivae inflammation, eyelid inflammation, redness, other ENT: reports: mouth pain, mouth swelling. denies: throat swelling Respiratory: denies: cough, dry, shortness of breath, hemoptysis, SOB with excertion, pleuritic pain, sputum, wheezing, other Cardiovascular: denies: chest pain, palpitations, orthopnea, paroxysmal noc. 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 - Past Surgical History Past Surgical History: reports: Hysterectomy, Other (PM, bladder suspension, uterine prolapse repair, bilateral cataracts with implants.) - Family History Other Family History: non contributory for this case - Social History Smoking Status: Never smoker Alcohol: reports: None Drugs: reports: none Living Situation: With Family Occupation: Lives in [place] at home Activity level: independent ambulation - Exam Eye: PERRL, anicteric sclera ENT: moist mucosa (able to control secretions) ENT - other findings: right facial swelling, poor dentition, multiple dental caries, no exudates Neck: supple, symmetric Heart: RRR, no murmur, no gallops, no rubs, normal peripheral pulses Respiratory: CTAB, no wheezes, no rales, no ronchi, no tachypnea Gastrointestinal: soft, non-tender, non-distended, normal bowel sounds, no guarding, no rigidity Extremities: no cyanosis, no edema Skin: no rashes Musculoskeletal: normal tone, normal strength Psychiatric: normal affect, A&O x 3 Hospitalist Results - Radiology Interpretation Other Status: report reviewed by wi Hospitalist H&P A/P - Problem (1) Cellulitis of buccal space of mouth Code(s): K12.2 - CELLULITIS AND ABSCESS OF MOUTH Status: Acute Assessment and Plan: Admit to medical floor, observation status Expected stay less than 24 hours LA 1.3, WBCs 7.4, no signs of respiratory distress or hemodynamic compromise Consulted OF, will perform surgery in am Instructions for NPO after midnight and continue Cefepime IVPB (2) Dental abscess Code(s): K04.7 - PERIAPICAL ABSCESS WITHOUT SINUS Status: Acute Assessment and Plan: CT facial showed right perimandibular cellulitis and fluid collection adjacent to right mandibular ramus Continue meropenem IVPB IVF hydration NPO after midnight (3) History of pulmonary embolism Code(s): Z86.711 - PERSONAL HISTORY OF PULMONARY EMBOLISM Status: Chronic Assessment and Plan: Will hold Eliquis, last dose 02/17/2020 in am per daughter Will give heparin 5000u x 1 dose tonight (4) History of DVT (deep vein thrombosis) Code(s): Z86.718 - PERSONAL HISTORY OF OTHER VENOUS THROMBOSIS AND EMBOLISM Status: Chronic Assessment and Plan: Will hold Eliquis, last dose 02/17/2020 in am per daughter Will give heparin 5000u x 1 dose tonight Patient is ambulatory (5) History of seizure Code(s): Z87.898 - PERSONAL HISTORY OF OTHER SPECIFIED CONDITIONS Status: Chronic Assessment and Plan: Will restart home medications Phenobarbital 32.4mg 2 tabs pm, 1 tab am keppra 1000mg BID Phenytoin 400mg q am Daughter confirmed dosing via telephone. (6) History of bradycardia Code(s): Z86.79 - PERSONAL HISTORY OF OTHER DISEASES OF THE CIRCULATORY SYSTEM Status: Chronic Assessment and Plan: VSS stable Patient has PM implanted Will get baseline EKG. - Plan Plan: Heparin DVT prophylaxis x 1 dose tonight GI prophylaxis BMP and CBC in am Full Code Mata HENDERSON at [phone]. Discussed case with Dr. Leigh.
[2020-02-17] MEDS ORDERED: Heparin 5,000 UNITS/ML VIAL SC SCH (22:00)
[2020-02-17 22:21] VITALS: BMI 21.2
[2020-02-17] MEDS: PHENobarbital 32.4 MG TAB PO SCH (22:44)
[2020-02-17] MEDS: Sodium Chloride 0.9% 1,000 ML IV SCH (22:46)
[2020-02-18] MEDS: MEROPENEM 1 GM/50 ML 1 GM in Premix Bag 1 BAG IVPB SCH ×3 (02:12→18:38)
[2020-02-18 05:45] LABS: #Lymphocytes 0.9 thou/uL (1.20-3.40); #Monocytes 0.8 thou/uL (0.11-0.59); #Neutrophils 5.5 thou/uL (1.40-6.50); %Basophils 0.3 % (0.0-1.0); %Eosinophils 0.3 % (0.0-10.0); %Lymphocytes 12.3 % (21.0-51.0); %Monocytes 10.9 % (0.0-10.0); %Neutrophils 76.2 % (42.0-75.0); Hemoglobin 11.8 g/dL (12.0-16.0); Mean Corpuscular HGB CONC 33.4 g/dL (32.0-36.0); Mean Corpuscular Hemoglobin 31.2 pg (27.0-31.0); Mean Corpuscular Volume 93.3 fL (78.0-98.0); Mean Platelet Volume 9.3 fL (7.4-10.4); Platelet Count 128 thou/uL (130-400); RBC Distribution Width 13.2 % (11.5-14.5); Red Blood Cell (RBC) Count 3.79 mill/uL (4.20-5.40); White Blood Cell (WBC) Count 7.2 thou/uL (4.8-10.8)
[2020-02-18 06:05] LABS: Anion Gap 14 mmol/L (10-20); BUN (Urea Nitrogen) 8 mg/dL (9.8-20.1); Calc. Creatinine Clearance 83 mL/min (70-130); Carbon Dioxide 25 mmol/L (23-31); Chloride 102 mmol/L (98-107); Estimated GFR-MDRD Greater than 90; Glucose 89 mg/dL (80-115); Potassium 3.7 mmol/L (3.5-5.1); Sodium 137 mmol/L (136-145)
[2020-02-18] MEDS: Sodium Chloride 0.9% 1,000 ML IV SCH (07:09)
--- NOTE | 2020-02-18 09:29 | PDOC.HOSPP ---
- Subjective Encounter Date: 02/18/20 Subjective: Feels better than yesterday. +Jaw pain. - Objective Vital Signs & Weight: Vital Signs (12 hours) Temp Pulse Resp BP Pulse Ox 02/18/20 07:05 99.4 F 76 16 106/62 96 02/18/20 03:32 98.3 F 77 16 118/64 98 02/17/20 23:26 98.1 F 75 16 140/73 98 02/17/20 22:00 99.0 F 73 16 127/69 98 Weight Weight 123 lb 7.342 oz I&O: 02/17/20 02/18/20 02/19/20 06:59 06:59 06:59 Intake Total 675 Output Total 1000 Balance -325 Result Diagrams: 02/18/20 05:32 02/18/20 05:32 Hospitalist ROS - Medication Medications: Active Medications Generic Name Dose Route Start Last Admin Trade Name Freq PRN Reason Stop Dose Admin Sodium Chloride 1,000 mls @ 75 mls/hr 02/17/20 21:30 02/18/20 07:09 Normal Saline 0.9% IV 1,000 mls .[id number] CHAR Administration Meropenem 1 gm/ Device 50 mls @ 100 mls/hr 02/18/20 02:00 02/18/20 02:12 IVPB 50 mls 0200,1000,1800 CHAR Administration Phenobarbital 64.8 mg 02/17/20 21:00 02/17/20 22:44 Phenobarbital PO 64.8 mg HS CHAR Administration - Exam General Appearance: awake alert ENT: normocephalic atraumatic Neck: supple Neck - other findings: R jaw swelling Hosp A/P (1) Cellulitis of buccal space of mouth Code(s): K12.2 - CELLULITIS AND ABSCESS OF MOUTH Status: Acute (2) Dental abscess Code(s): K04.7 - PERIAPICAL ABSCESS WITHOUT SINUS Status: Acute (3) History of DVT (deep vein thrombosis) Code(s): Z86.718 - PERSONAL HISTORY OF OTHER VENOUS THROMBOSIS AND EMBOLISM Status: Chronic (4) History of bradycardia Code(s): Z86.79 - PERSONAL HISTORY OF OTHER DISEASES OF THE CIRCULATORY SYSTEM Status: Chronic (5) History of seizure Code(s): Z87.898 - PERSONAL HISTORY OF OTHER SPECIFIED CONDITIONS Status: Chronic (6) PE (pulmonary thromboembolism) Code(s): I26.99 - OTHER PULMONARY EMBOLISM WITHOUT ACUTE COR PULMONALE Status : Acute - Plan Plan for I&D by [facility] today. Continue Meropenem until surgical cultures are available. Restart Aparna tomorrow if okay by surgical team. Continue her keppra.
[2020-02-18] MEDS: Famotidine 20 MG TAB PO SCH ×2 (09:59→21:54)
[2020-02-18] MEDS: levETIRAcetam 500 MG TAB PO SCH ×2 (10:00→21:54)
--- NOTE | 2020-02-18 14:52 | RAD ---
PA AND LATERAL OF THE CHEST: 02/18/20 INDICATION: History of preop clearance. COMPARISON: None. FINDINGS: There is levoscoliosis of the thoracic spine. There is mild cardiomegaly. There is a single lead pace maker involving the left chest wall. The lungs are hyperinflated. There is some blunting of the left lateral and posterior costophrenic angle suspicious for a tiny effusion. IMPRESSION: 1. Mild cardiomegaly with small left pleural effusion. 2. Single lead pacemaker overlying the left chest wall. POS: BH
[2020-02-18] MEDS: PHENobarbital 32.4 MG TAB PO SCH (21:55)
[2020-02-19] MEDS: Sodium Chloride 0.9% 1,000 ML IV SCH ×2 (00:59→14:49)
[2020-02-19] MEDS: MEROPENEM 1 GM/50 ML 1 GM in Premix Bag 1 BAG IVPB SCH ×3 (01:00→17:11)
[2020-02-19] MEDS ORDERED: Sodium Chloride 0.9% 500 ML IV SCH (02:00)
[2020-02-19 06:38] LABS: #Eosinphils 0.1 thou/uL (0.0-0.7); #Lymphocytes 0.9 thou/uL (1.20-3.40); #Monocytes 0.5 thou/uL (0.11-0.59); #Neutrophils 3.1 thou/uL (1.40-6.50); %Basophils 0.7 % (0.0-1.0); %Eosinophils 2.6 % (0.0-10.0); %Lymphocytes 20.2 % (21.0-51.0); %Monocytes 9.9 % (0.0-10.0); %Neutrophils 66.6 % (42.0-75.0); Hemoglobin 11.6 g/dL (12.0-16.0); Mean Corpuscular HGB CONC 32.3 g/dL (32.0-36.0); Mean Corpuscular Hemoglobin 30.6 pg (27.0-31.0); Mean Corpuscular Volume 94.8 fL (78.0-98.0); Mean Platelet Volume 9.7 fL (7.4-10.4); Platelet Count 140 thou/uL (130-400); Red Blood Cell (RBC) Count 3.78 mill/uL (4.20-5.40); White Blood Cell (WBC) Count 4.6 thou/uL (4.8-10.8)
[2020-02-19] MEDS: Famotidine 20 MG TAB PO SCH ×2 (07:43→20:47)
[2020-02-19] MEDS: levETIRAcetam 500 MG TAB PO SCH ×2 (07:44→20:47)
[2020-02-19] MEDS ORDERED: Ophthalmic Irrigation Solution 0 ML ONE (11:34)
[2020-02-19] MEDS ORDERED: Lidocaine 1% w/Epinephrine 1:100K 20 ML VIAL ONE (11:34)
[2020-02-19] MEDS ORDERED: Bacitracin Zinc Ointment 30 gm TUBE ONE (11:34)
[2020-02-19] MEDS ORDERED: Hydrocortisone 1% Cream 30 GM TUBE ONE (11:34)
[2020-02-19] MEDS ORDERED: Chlorhexidine Gluconate 15 ML UDCUP SSP ONE (11:34)
[2020-02-19] MEDS ORDERED: SUGAMMADEX SODIUM 200 MG/2 ML VIAL ONE (11:38)
[2020-02-19] MEDS ORDERED: Fentanyl 100 MCG/2 ML VIAL ONE (11:38)
[2020-02-19] MEDS ORDERED: Famotidine/PF 20 mg/2ml Vial ONE (11:38)
[2020-02-19] MEDS ORDERED: AFRIN NASAL MIST 15 ML BOT ONE (11:40)
[2020-02-19] MEDS ORDERED: Bupivacaine PF 0.5% 30 ML VIAL ONE (12:42)
[2020-02-19] MEDS ORDERED: Promethazine HCl 25 MG/ML VIAL SLOW IVP PRN (13:23)
[2020-02-19] MEDS ORDERED: Ondansetron HCl/PF 4 MG/2 ML Vial IVP PRN (13:23)
[2020-02-19] MEDS ORDERED: Promethazine HCl 25 MG/ML VIAL IM PRN (13:23)
[2020-02-19] MEDS ORDERED: HYDROcodone/Acetaminophen 5/325 mg Tablet PO PRN (16:50)
[2020-02-19] MEDS ORDERED: Acetaminophen 325 MG TAB PO PRN (16:51)
--- NOTE | 2020-02-19 20:10 | PDOC.HOSPP ---
- Subjective Encounter Date: 02/19/20 Subjective: For I&D today. - Objective Vital Signs & Weight: Vital Signs (12 hours) Temp Pulse Resp BP Pulse Ox 02/19/20 14:25 97.1 F L 68 18 135/76 95 Weight Admit Weight 123 lb 7.328 oz Weight 123 lb 7.328 oz I&O: 02/18/20 02/19/20 02/20/20 06:59 06:59 06:59 Intake Total 675 2755 1170 Output Total 1000 200 650 Balance -325 2555 520 Result Diagrams: 02/19/20 06:09 02/18/20 05:32 Hospitalist ROS - Medication Medications: Active Medications Generic Name Dose Route Start Last Admin Trade Name Freq PRN Reason Stop Dose Admin Famotidine 20 mg 02/18/20 09:00 02/19/20 07:43 Pepcid PO 20 mg BID CHAR Administration Sodium Chloride 1,000 mls @ 75 mls/hr 02/17/20 21:30 02/19/20 14:49 Normal Saline 0.9% IV 1,000 mls .[id number] CHAR Administration Meropenem 1 gm/ Device 50 mls @ 100 mls/hr 02/18/20 02:00 02/19/20 17:11 IVPB 50 mls 0200,1000,1800 CHAR Administration Levetiracetam 1,000 mg 02/18/20 09:00 02/19/20 07:44 Keppra PO 1,000 mg BID CHAR Administration Phenobarbital 64.8 mg 02/17/20 21:00 02/18/20 21:55 Phenobarbital PO 64.8 mg HS CHAR Administration Phenytoin Sodium 400 mg 02/18/20 09:00 02/19/20 07:44 Dilantin Er PO 400 mg DAILY CHAR Administration - Exam General Appearance: awake alert Neck: supple Heart: RRR, no murmur, no gallops, no rubs Respiratory: normal chest expansion, no tachypnea Neurological: cranial nerve grossly intact, no focal deficits Hosp A/P (1) Cellulitis of buccal space of mouth Code(s): K12.2 - CELLULITIS AND ABSCESS OF MOUTH Status: Acute (2) Dental abscess Code(s): K04.7 - PERIAPICAL ABSCESS WITHOUT SINUS Status: Acute (3) History of DVT (deep vein thrombosis) Code(s): Z86.718 - PERSONAL HISTORY OF OTHER VENOUS THROMBOSIS AND EMBOLISM Status: Chronic (4) History of bradycardia Code(s): Z86.79 - PERSONAL HISTORY OF OTHER DISEASES OF THE CIRCULATORY SYSTEM Status: Chronic (5) History of seizure Code(s): Z87.898 - PERSONAL HISTORY OF OTHER SPECIFIED CONDITIONS Status: Chronic (6) PE (pulmonary thromboembolism) Code(s): I26.99 - OTHER PULMONARY EMBOLISM WITHOUT ACUTE COR PULMONALE Status : Acute - Plan Plan for I&D by [facility] today. Continue Meropenem until surgical cultures are available. Restart Aparna tomorrow if okay by surgical team. Continue her keppra.
[2020-02-19] MEDS: PHENobarbital 32.4 MG TAB PO SCH (20:47)
[2020-02-19] MEDS: Chlorhexidine Gluconate 15 ML UDCUP SSP SCH (20:47)
[2020-02-20] MEDS: Sodium Chloride 0.9% 1,000 ML IV SCH ×2 (03:27→15:14)
[2020-02-20] MEDS: MEROPENEM 1 GM/50 ML 1 GM in Premix Bag 1 BAG IVPB SCH ×2 (03:27→08:51)
--- NOTE | 2020-02-20 05:20 | OP ---
DATE OF PROCEDURE: 02/19/2020 PREOPERATIVE DIAGNOSIS: Right mandibular, vestibular, and buccal space infection with nonrestorable teeth #32, 31, 30, 29, and 28. POSTOPERATIVE DIAGNOSIS: Right mandibular, buccal, and vestibular space infection and nonrestorable teeth #32, 31, 30, 29, and 28. TREATMENT: 1. Incision and drainage via intraoral approach of right buccal and vestibular space infection. 2. Extraction of nonrestorable teeth #32, 31, 30, 29, and 28. ESTIMATED BLOOD LOSS: Approximately 50 mL. FINDINGS: Significant poor dentition and hygiene. Multiple nonrestorable teeth. The patient is 48 hours status post Eliquis. Moderate bleeding. I elected to just address the teeth associated with the right buccal and vestibular space infection due to concern for bleeding. 1 to 2 mL of purulence was appreciated. COMPLICATIONS: None. DISPOSITION: PACU. INDICATIONS FOR SURGERY: Oral Maxillofacial Surgery was consulted with concern for facial cellulitis and abscess of right mandible. The patient has been admitted for IV antibiotics and pain control. The patient with extensive medical history along with taking anticoagulant medication, Eliquis, due to 6 months prior history of DVT and PE. During exam, it was noted the patient had a right buccal and vestibular space infection that required incision and drainage and surgical intervention to include extractions of necessary teeth. Recommended procedure after clinical and radiographic exam were incision and drainage of right buccal and vestibular space with extraction of 31, 32, 30, 29, and 28 in the operating room under general anesthesia. Discussed risks, benefits, indications, and alternatives with the patient and her daughter. The patient and daughter elected to continue with the recommended procedure. The patient was met in the preoperative holding area. Site and procedure were again verified. The patient had opportunity to ask questions again. Discussed risks, benefits, indications, and alternatives. The patient elected to again proceed with the recommended procedure. DESCRIPTION OF PROCEDURE: On the day of surgery, the patient was met in the preoperative holding area, transferred to the operating room 5. Identification of site and procedure was confirmed. The patient was connected to the standard cardiopulmonary monitors and deemed a good candidate to undergo general anesthesia. She was induced into a state of general anesthesia and intubated via nasal endotracheal tube. It was secured by the anesthesia team. The patient was draped in a standard fashion. A bite block and throat pack were placed. A total of 7 mL of 1% lidocaine with 1:100,000 epinephrine was infiltrated in the right inferior alveolar nerve block and long buccal nerve branch block. With appropriate retractors in position, a 15 blade was used to make a distal buccal incision along site #32, extending a sulcular incision anterior to tooth #28. Full-thickness mucoperiosteal flap was reflected using surgical handpiece, sectioned tooth #30 under sterile saline irrigation. Teeth #32, 31, 30, 29, and 28 were delivered with elevators and forceps, bone file curettage of site. Copious sterile saline irrigation. Next, using a curette, curetted the granulation tissue along the lateral border of the right mandible. Using hemostats, blunt dissection into the right buccal and vestibular space into the loculated areas of localized abscess. Minimal to 1 to 2 mL of purulence was appreciated. Significant resolution of edema and swelling of the localized abscess is improving secondary to IV antibiotics for the past 2 days. Moderate bleeding at site, recommended Gelfoam be placed in the extraction sites. Placed Gelfoam in extraction site 32, 31, 30, 29, and 28. A 4-0 chromic gut interrupted sutures x4 were placed. The site noted to be hemostatic. At this point, the procedure was deemed complete. The patient was extubated without incident and transferred to the PACU with spontaneous respirations intact. Job ID: [id number]
[2020-02-20 06:02] LABS: #Eosinphils 0.1 thou/uL (0.0-0.7); #Lymphocytes 0.8 thou/uL (1.20-3.40); #Monocytes 0.5 thou/uL (0.11-0.59); #Neutrophils 2.7 thou/uL (1.40-6.50); %Basophils 0.8 % (0.0-1.0); %Eosinophils 1.8 % (0.0-10.0); %Lymphocytes 19.3 % (21.0-51.0); %Monocytes 12.2 % (0.0-10.0); %Neutrophils 65.8 % (42.0-75.0); Hemoglobin 11.1 g/dL (12.0-16.0); Mean Corpuscular HGB CONC 32.3 g/dL (32.0-36.0); Mean Corpuscular Hemoglobin 30.4 pg (27.0-31.0); Mean Corpuscular Volume 94.1 fL (78.0-98.0); Mean Platelet Volume 9.4 fL (7.4-10.4); Platelet Count 161 thou/uL (130-400); RBC Distribution Width 13.1 % (11.5-14.5); Red Blood Cell (RBC) Count 3.64 mill/uL (4.20-5.40); White Blood Cell (WBC) Count 4.1 thou/uL (4.8-10.8)
[2020-02-20] MEDS: Famotidine 20 MG TAB PO SCH (08:47)
[2020-02-20] MEDS: levETIRAcetam 500 MG TAB PO SCH (08:48)
[2020-02-20] MEDS: Chlorhexidine Gluconate 15 ML UDCUP SSP SCH (08:51)
[2020-02-20] MEDS ORDERED: Apixaban 5 MG TAB PO SCH (09:00)
[2020-02-20 11:49] VITALS: TEMP 98.3
[2020-02-20 12:25] VITALS: BP 95/58
--- NOTE | 2020-02-22 05:59 | DIS ---
DATE OF ADMISSION: 02/17/2020 DATE OF DISCHARGE: 02/20/2020 HOSPITAL COURSE: Ms. Win is a 64-year-old female with a medical history of venous thrombosis (on Eliquis), seizures, and bradycardia with pacemaker, who presented to the ED with jaw pain and swelling. She was diagnosed with right mandibular buccal and vestibular space infection and nonrestorable teeth. 1. Facial cellulitis and periodontal abscess. a. Surgery was consulted and performed an I and D, which the patient tolerated well. b. The patient was initially on meropenem, and after improvement was transitioned to oral antibiotics. Considering her penicillin allergy, she was treated with levofloxacin and metronidazole to complete treatment for 7 days. c. The patient was scheduled to followup with surgery. 2. History of DVT. a. The patient was restarted on her Eliquis on postoperative day 2 and had no signs or symptoms of bleeding. 3. Pulmonary embolism. a. Managed as above mentioned. On the day of discharge, the patient was hemodynamically stable. She was afebrile throughout her inpatient stay and was breathing and saturating well on room air. PHYSICAL EXAMINATION: GENERAL: Lying in bed comfortably. No apparent distress. HEENT: Improved right facial cellulitis, oral mucosa surrounding incision site remains mildly swollen; however, much improved compared to presentation. CARDIAC: Regular rate and rhythm. No murmurs, gallops, or rubs. RESPIRATORY: Clear to auscultation bilaterally. No wheezing, rales, or rhonchi. No tachypnea. NEUROLOGIC: Cranial nerves 2 through 12 grossly intact. No focal deficits. PSYCHIATRIC: Proper mood and affect. MEDICATIONS LIST: New medications: 1. Flagyl 500 mg p.o. q.8 hours for four additional days. 2. Levofloxacin 750 mg p.o. daily for four more days. Continued medications: 1. Phenytoin. 2. Levetiracetam. 3. Lasix p.r.n. 4. Apixaban. 5. Phenobarbital. 6. Chlorhexidine. 7. Tylenol 3. Discontinue medications, none. Job ID: [id number] [facility]
--- NOTE | 2020-02-25 07:34 | EKG ---
Test Reason : STAT Blood Pressure : / mmHG Vent. Rate : 077 BPM Atrial Rate : 077 BPM P-R Int : 172 ms QRS Dur : 076 ms QT Int : 358 ms P-R-T Axes : 020 -42 008 degrees QTc Int : 405 ms Normal sinus rhythm Possible Left atrial enlargement Left axis deviation Abnormal ECG Confirmed by RASHAUN URBINA MD ([id number]) on 02/25/2020 7:34:18 AM Referred By: ASHLIE Confirmed By:RASHAUN URBINA MD
== END 2020-02-20 15:44 | disposition home or self-care (01) ==
LOC: ERS 19:39 → SURG A 21:01
PROVIDERS: ADMIT Emergency Medicine; ATTEND Emergency Medicine
PROC: 0C94XZZ Drainage of Buccal Mucosa, External Approach (ICD-10-PCS; principal; 2020-02-17)
PROC: 0CDXXZ1 Extraction of Lower Tooth, Multiple, External Approach (ICD-10-PCS; 2020-02-17)
DX: K12.2 Cellulitis and abscess of mouth (principal); K04.7 Periapical abscess without sinus; R56.9 Unspecified convulsions; Z79.01 Long term (current) use of anticoagulants; Z79.899 Other long term (current) drug therapy; Z86.711 Personal history of pulmonary embolism; Z86.718 Personal history of other venous thrombosis and embolism; Z88.0 Allergy status to penicillin; Z88.1 Allergy status to other antibiotic agents; Z95.0 Presence of cardiac pacemaker
CPT/HCPCS: 40800; 41899; 71046; 80048; 85025 ×3; 93005; 96361 ×5; 96365; 96366 ×3; 96372; 96376; 99284; C1769; G0378 ×5; J1100; J1644; J1885; J2001; J2185 ×3; J2405; J2704; J2765; J3010; 36415; 93010; 96360; S0020; S0028